=== PATIENT | female | born 1985 ===

== ENCOUNTER → 2019-01-06 22:36 | Outpatient (REF) | payer OTHER, SELFPAY ==
[2019-01-06 23:48] LABS: Free T3, Triiodothyronine Free 5.26 pg/mL (2.77-5.27); Free T4, Direct Thyroxine 0.82 ng/dL (0.78-2.19)
[2019-01-07 00:01] LABS: Thyroid Stimulating Hormone 4.94 uIU/mL (0.47-4.68)
[2019-01-10 15:50] LABS: Anti Thyroglobulin Antibody 3 IU/mL (< 2); Thyroid Peroxidase Antibodies 860 IU/mL (< 9)
== END ==
LOC: LAB 22:36
PROVIDERS: Visit Provider Naturopath
DX: E06.3 Autoimmune thyroiditis (principal)
CPT/HCPCS: 36415; 84439; 84443; 84481; 86376; 86800